=== PATIENT | female | born 1955 ===

== ENCOUNTER 2016-10-28 07:18 | Day surgery (SDC) | payer OTHER ==
[2016-10-28] MEDS ORDERED: Propofol 10 mg/ml Inj (20 ML) ONE (08:48)
--- NOTE | 2016-10-28 08:48 | CP.SDSHP ---
Same Day Surgery H & P - History Proposed Procedure: COLONSCOPY Pre-Op Diagnosis: SEE NOTES - Previous Medical/Surgical History Cardiac: Hypertension Endocrine/Metabolic: Other Neuro: Backaches Misc: Other Pain: 4.Moderate Pain - Allergies Allergies: Allergies No Known Allergies Allergy (Verified 10/28/16 07:39) - Physical Exam General Appearance: N Vital Signs: Vital Signs 10/28/16 07:35 Temperature 97.3 F L Pulse Rate 78 Respiratory 19 Rate Blood Pressure 151/84 H O2 Sat by Pulse 99 Oximetry Mental Status: Alert & Oriented x3 Neuro: WNL Heart: Other Lungs: WNL GI: WNL - {Optional Preform as Required} Breast: WNL Abdomen: Other Rectal: Other Integument: WNL : WNL Ortho: Other ENT: WNL - Impression Pt. Evaluated Today:Candidate for Anesthesia & Procedure: Yes - Date & Time Time: 08:48 Short Stay Discharge - Short Stay Discharge Admitting Diagnosis/Reason for Visit: SCREENING FOR MALIGNANT NEOPLASM OF COLON Disposition: HOME/ ROUTINE
[2016-10-28] MEDS ORDERED: Belladonna-Phenobarbital PO STA (08:49)
[2016-10-28] MEDS ORDERED: Lidocaine Hydrochloride 5 ML INJ ONE (08:49)
[2016-10-28] MEDS ORDERED: Lactated Ringer's 500 ML IV ONE ×2 (08:58)
[2016-10-28] MEDS ORDERED: Lactated Ringer's 1,000 ML IV SCH (09:15)
[2016-10-28 09:16] VITALS: TEMP 97; O2SAT 100
[2016-10-28 10:36] VITALS: BP 121/68; PULSE 65; RESP 14
== END 2016-10-28 10:15 | disposition home or self-care (01) ==
LOC: C.ENDO 07:18
PROVIDERS: ATTEND Specialist
DX: K52.9 Noninfective gastroenteritis and colitis, unspecified (principal); K58.9 Irritable bowel syndrome, unspecified; K64.8 Other hemorrhoids
CPT/HCPCS: 45380; 88305; J2704; J7120